=== PATIENT | female | born 1950 | race Caucasian/White ===

== ENCOUNTER 2017-01-20 13:13 | Emergency (ER) | payer BC, OTHER ==
[~2017-01-20] VITALS: Ht 157.5 cm; Wt 106.6 kg
[2017-01-20 13:15] VITALS: TEMP 36.2; Ht 157.5 cm; Wt 106.6 kg
[2017-01-20] MEDS ORDERED: MAGN250T3 PO (13:58)
[2017-01-20] MEDS ORDERED: CHOL2000 PO (13:58)
[2017-01-20] MEDS ORDERED: ASPI325T45 PO (13:58)
[2017-01-20] MEDS ORDERED: MULT-222 PO (13:58)
--- NOTE | 2017-01-20 15:06 | DIAGNOSTIC IMAGING REPORT ---
L KNEE 3 VIEWS HISTORY: 67 years-old Female Left knee pain acute left knee pain COMPARISON: None available TECHNIQUE: 3 views of the left knee FINDINGS: Mild tricompartmental osteoarthritis, most pronounced within the medial and patellofemoral compartments. Enthesophyte at the quadriceps insertion site about the patella. No acute fracture or dislocation. Small joint effusion. No intra-articular loose body. IMPRESSION: 1. Small joint effusion without acute fracture or dislocation. 2. Mild Tricompartmental osteoarthritis The above report was generated using voice recognition software. It may contain grammatical, syntax or spelling errors. Electronically signed by: Stuart Alvarado M.D. 01/20/2017 3:04 PM Dictated Date/Time: 01/20/2017 2:51 PM
--- NOTE | 2017-01-20 15:30 | DIAGNOSTIC IMAGING REPORT ---
LEFT LOWER EXTREMITY VENOUS DOPPLER HISTORY: left knee/leg swelling. Hx of CA. r/o DVT COMPARISON STUDY: None. FINDINGS: There is normal compressibility, flow, and augmentation within the left lower extremity deep venous system. IMPRESSION: No DVT within the left lower extremity. Electronically signed by: Adria Jones M.D. 01/20/2017 3:29 PM Dictated Date/Time: 01/20/2017 3:29 PM
[2017-01-20 15:43] VITALS: BP 149/98; PULSE 65; O2SAT 96
--- NOTE | 2017-01-20 15:47 | EMERGENCY ROOM VISIT NOTE ---
History First contact with patient: 13:28 Chief Complaint: KNEEPAIN Stated Complaint: LEFT KNEE PAIN History of Present Illness The patient is a 67 year old female who presents to the Emergency Room with complaints of pain and swelling to the left lower leg. The patient states her symptoms have worsened over the past 12 hours. She does not have injury or trauma to explain her discomfort. She essentially awoke from sleep with the pain. She does not have a history of DVT or PE, but states that a family member recently from a pulmonary embolism. The patient herself is with a past history of breast cancer roughly 10 years ago in remission. She is not on hormonal treatments. She is not with chest pain or shortness of breath. She does report a history of arthritis . She has not taken anything [id number] for her symptoms. She rates her discomfort a 4/10. Review of Systems More than 10 systems were reviewed and otherwise negative with the exception of history of present illness. Past Medical/Surgical History History of arthritis Family History No pertinent family history Social History Smoking Status: Never Smoker Housing Status: lives with family Current/Historical Medications Scheduled Aspirin (Aspirin), 325 MG PO 2XWK Cholecalciferol (Vitamin D3), 1 CAP PO DAILY Magnesium (Magnesium 250 mg), 250 MG PO DAILY Multiple Vitamins W/ Minerals (Multi For Her), 1 TAB PO DAILY Physical Exam Vital Signs Date Time Temp Pulse Resp B/P (MAP) Pulse Ox O2 Delivery O2 Flow Rate FiO2 01/20/17 14:54 71 16 147/96 97 Room Air 01/20/17 13:15 36.2 77 18 176/94 97 Room Air Physical Exam VITALS: Vitals are noted on the nurse's note and reviewed by myself. Vital signs stable. GENERAL: Well-developed, well-nourished, white female, who is in no acute distress and resting comfortably. Patient is cooperative with the examination. HEART: Regular rate and rhythm without murmurs gallops or rubs. LUNGS: Clear to auscultation bilaterally without wheezes, rales or rhonchi. No retractions or accessory muscle use. MUSCULOSKELETAL: Mild tenderness appreciated throughout the left knee primarily posteriorly behind the patella and popliteal fossa. No significant joint line tenderness. Negative anterior/posterior. No laxity with varus or valgus maneuvers. No distinct palpable cord or positive Homans sign. Neurovascular status is intact distally. NEURO: Patient was alert and oriented to person place and time. CN II through XII grossly intact. Deep tendon reflexes 2+ throughout. Medical Decision & Procedures ER Provider Diagnostic Interpretation: L KNEE 3 VIEWS HISTORY: 67 years-old Female Left knee pain acute left knee pain COMPARISON: None available TECHNIQUE: 3 views of the left knee FINDINGS: Mild tricompartmental osteoarthritis, most pronounced within the medial and patellofemoral compartments. Enthesophyte at the quadriceps insertion site about the patella. No acute fracture or dislocation. Small joint effusion. No intra-articular loose body. IMPRESSION: 1. Small joint effusion without acute fracture or dislocation. 2. Mild Tricompartmental osteoarthritis LEFT LOWER EXTREMITY VENOUS DOPPLER HISTORY: left knee/leg swelling. Hx of CA. r/o DVT COMPARISON STUDY: None. FINDINGS: There is normal compressibility, flow, and augmentation within the left lower extremity deep venous system. IMPRESSION: No DVT within the left lower extremity. ED Course Physical exam and history were performed. Nursing notes, EMR, and Medication List were personally reviewed. Patient appears to have pain and swelling into her left lower extremity without injury or trauma. Patient does have a history of cancer and familial history of pulmonary embolism. X-ray was obtained and does show arthritis in the left knee. Ultrasound was also performed, and thankfully was negative for DVT. Overall the patient appears well for discharge home. She will be treated conservatively as I suspect that arthritis is the likely cause of her symptoms. She is to use [id number] analgesics and was otherwise invited back to ER with any new, worsening, or concerning symptoms. The chart was completed utilizing [employer] Speech Voice Recognition Software. Grammatical errors, random word insertions, pronoun errors, and incomplete sentences are an occasional consequence of this system due to software limitations, ambient noise, and hardware issues. Any formal questions or concerns about the content, text, or information contained within the body of this dictation should be directly addressed to the provider for clarification. . Medical Decision Differential diagnosis: Etiologies such as DVT, musculoskeletal, infection, joint effusion, trauma, lymphedema, idiopathic, CHF, as well as others were entertained.. Impression Primary Impression: Swelling of left lower extremity Departure Information Dispostion Home / Self-Care Condition GOOD Forms HOME CARE DOCUMENTATION FORM, IMPORTANT VISIT INFORMATION Patient Instructions My [facility] Additional Instructions You were seen and evaluated today on an emergency basis only. This is not a substitute for, or an effort to provide, complete comprehensive medical care. It is not possible to recognize and treat all injuries or illnesses in a single emergency department visit. For this reason it is recommended that you followup with your primary care physician this week for any ongoing or persistent symptoms. For baseline pain relief you may alternate ibuprofen and acetaminophen every 4 hours for pain control. Take 600 mg ibuprofen (Advil) and then 4 hours later take 1000 mg acetaminophen (Tylenol). Do not take more than 3000 mg acetaminophen in a single day. You are welcome to return to the emergency department anytime with new, worsening, or concerning symptoms.
== END 2017-01-20 15:43 | disposition home or self-care (01) ==
LOC: C.EDB 13:14 → C.EDD 15:43
DX: R22.42 Localized swelling, mass and lump, left lower limb (principal); M19.90 Unspecified osteoarthritis, unspecified site; Z85.3 Personal history of malignant neoplasm of breast; Z79.82 Long term (current) use of aspirin; Z79.899 Other long term (current) drug therapy